=== PATIENT | female | born 1980 | race Caucasian/White ===

== ENCOUNTER 2018-05-08 14:39 | Emergency (ER) | payer OTHER | END 2018-05-08 19:12 | disposition home or self-care (01) | LOC: FTE 14:39 | DX: J01.90 Acute sinusitis, unspecified (principal); R40.2142 Coma scale, eyes open, spontaneous, at arrival to emergency department; R40.2252 Coma scale, best verbal response, oriented, at arrival to emergency department; R40.2362 Coma scale, best motor response, obeys commands, at arrival to emergency department | CPT/HCPCS: 99283; Z7502 ==